=== PATIENT | male | born 1950 | race Caucasian/White ===

== ENCOUNTER 2022-07-06 13:47 | Day surgery (SDC) | payer OTHER ==
[~2022-07-06] VITALS: Ht 180.3 cm; Wt 97.5 kg
--- NOTE | 2022-07-06 14:34 | NUR ---
07/06/22 1434 Kath RodINE AT 1420 PLEDGET AT 1421; SECOND PLEDGET PLACED D/T FIRST ONE COMING OUT AT 1429
== END 2022-07-06 15:33 | disposition home or self-care (01) ==
LOC: ORSCSDS 13:47
PROVIDERS: Ophthalmology
PROC: 08DK3ZZ Extraction of Left Lens, Percutaneous Approach (ICD-10-PCS; principal; 2022-07-06 15:00)
DX: E11.36 Type 2 diabetes mellitus with diabetic cataract (principal); H25.12 Age-related nuclear cataract, left eye; I12.9 Hypertensive chronic kidney disease with stage 1 through stage 4 chronic kidney disease, or unspecified chronic kidney disease; E11.22 Type 2 diabetes mellitus with diabetic chronic kidney disease; N18.9 Chronic kidney disease, unspecified; K21.9 Gastro-esophageal reflux disease without esophagitis; F43.10 Post-traumatic stress disorder, unspecified; F32.A Depression, unspecified; F41.9 Anxiety disorder, unspecified; M54.12 Radiculopathy, cervical region; Z79.4 Long term (current) use of insulin; Z79.899 Other long term (current) drug therapy
CPT/HCPCS: 82947; J2001; J2250; J3010; J3301; J7040; V2632

== ENCOUNTER 2022-08-31 13:19 | Day surgery (SDC) | payer OTHER ==
[~2022-08-31] VITALS: Ht 180.3 cm; Wt 98.8 kg
--- NOTE | 2022-08-31 14:34 | NUR ---
08/31/22 1434 Dawit Pavon CALL LIGHT WITHIN REACH. TETRACAINE IN AT 1425 TO RIGHT EYE AND PLEDGETT INTO R EYE AT 1426.
--- NOTE | 2022-08-31 16:05 | NUR ---
08/31/22 1605 Tadeo Coronel IV [id number]. SITE [facility].
== END 2022-08-31 16:00 | disposition home or self-care (01) ==
LOC: ORSCSDS 13:19
PROVIDERS: Ophthalmology
PROC: 08DJ3ZZ Extraction of Right Lens, Percutaneous Approach (ICD-10-PCS; principal; 2022-08-31 15:00)
DX: H25.11 Age-related nuclear cataract, right eye (principal); H52.201 Unspecified astigmatism, right eye; Z96.1 Presence of intraocular lens; E11.9 Type 2 diabetes mellitus without complications; F32.A Depression, unspecified; F41.9 Anxiety disorder, unspecified; I10 Essential (primary) hypertension; Z79.899 Other long term (current) drug therapy
CPT/HCPCS: 82947; J2250; J3010; J3301; J7040; V2632

== ENCOUNTER 2023-10-19 12:46 | Inpatient (IN) | payer OTHER ==
[~2023-10-19] VITALS: Ht 180.3 cm; Wt 89.6 kg
[2023-10-19] MEDS ORDERED: NS 1,000 ML IV SCH ×2 (17:35→19:35)
[2023-10-19] MEDS ORDERED: MetroNIDAZOLE 500MG/NS 100 ml 100 ML IV ONE (17:40)
[2023-10-19] MEDS ORDERED: Ciprofloxacin 500 MG Tab PO ONE (17:40)
[2023-10-19 18:29] LABS: BASOPHILS ABSOLUTE AUTO 0.01 K/mm3 (0.00-0.23); BASOPHILS PERCENT AUTO 0 % (0-2); EOSINOPHILS ABSOLUTE AUTO 0.08 K/mm3 (0.00-0.68); EOSINOPHILS PERCENT AUTO 1 % (0-6); Hematocrit 38.3 % (37.0-53.0); Hemoglobin 13.3 g/dL (13.5-17.5); IMMATURE GRAN ABSOLUTE AUTO 0.04 K/mm3 (0.00-0.10); IMMATURE GRAN PERCENT AUTO 1 % (0-1); LYMPHOCYTES ABSOLUTE AUTO 0.74 K/mm3 (0.84-5.20); LYMPHOCYTES PERCENT AUTO 9 % (21-46); MONOCYTES ABSOLUTE AUTO 0.43 K/mm3 (0.16-1.47); MONOCYTES PERCENT AUTO 5 % (4-13); Mean Corpuscular HGB 32.6 pg (26.0-34.0); Mean Corpuscular HGB Conc 34.7 g/dL (31.5-36.5); Mean Corpuscular Volume 94 fL (80-100); Mean Platelet Volume 9.8 fL (9.1-12.4); NEUTROPHILS ABSOLUTE AUTO 7.08 K/mm3 (1.96-9.15); NEUTROPHILS PERCENT AUTO 85 % (41-73); Platelet Count 142 K/mm3 (150-400); RDW Coefficient Variation 12.1 % (11.7-14.2); RDW Standard Deviation 42.5 fL (35.1-46.3); Red Blood Cell Count 4.08 M/mm3 (4.30-5.90); White Blood Cell Count 8.38 K/mm3 (4.00-11.30)
[2023-10-19 18:43] LABS: Albumin, Blood 3.2 g/dL (3.4-5.0); Albumin/Globulin Ratio 0.8 (0.8-1.8); Bilirubin, Total 4.8 mg/dL (0.1-1.0); Bun/Creatinine Ratio 20.7 (12.0-20.0); Creatinine, Blood 0.82 mg/dL (0.60-1.20); Globulin, Blood 4.1 g/dL (2.2-4.0); Potassium, Blood 3.5 mmol/L (3.5-5.5); Total Protein, Blood 7.3 g/dL (6.4-8.2)
[2023-10-19] MEDS ORDERED: FentaNYL Citrate 50 MCG/ML 2 ML Injection IV PRN (19:35)
[2023-10-19] MEDS ORDERED: Ondansetron HCl 2 MG / ML 2ML Vial IV PRN (19:35)
[2023-10-19] MEDS ORDERED: Insulin Glargine-Yfgn 100 Unit/mL 3 ML SYR SC SCH (21:00)
[2023-10-19 21:34] VITALS: BP 121/61
[2023-10-19] MEDS ORDERED: Aspir 8181 MG PO (22:01)
[2023-10-19] MEDS ORDERED: Hair, Skin & N1 EACH PO (22:02)
[2023-10-19] MEDS ORDERED: OMEP20ER PO (22:02)
[2023-10-19] MEDS ORDERED: UBID10 PO (22:02)
[2023-10-19] MEDS ORDERED: HUMULIN R100 UNIT/1 SC (22:04)
[2023-10-19] MEDS ORDERED: INSULANI SC (22:08)
[2023-10-20] VITALS (12 sets, daily range): BP systolic 100–163; BP diastolic 44–82
[2023-10-20 05:11] LABS: Hematocrit 38.1 % (37.0-53.0); Hemoglobin 13.1 g/dL (13.5-17.5); Mean Corpuscular HGB 32.6 pg (26.0-34.0); Mean Corpuscular HGB Conc 34.4 g/dL (31.5-36.5); Mean Corpuscular Volume 95 fL (80-100); Mean Platelet Volume 9.9 fL (9.1-12.4); Platelet Count 127 K/mm3 (150-400); RDW Coefficient Variation 12.1 % (11.7-14.2); RDW Standard Deviation 42.2 fL (35.1-46.3); Red Blood Cell Count 4.02 M/mm3 (4.30-5.90); White Blood Cell Count 7.83 K/mm3 (4.00-11.30)
--- NOTE | 2023-10-20 05:21 | NUR ---
NOC SHIFT SUMMARY RECEIVED REPORT FROM ER NURSE NE. PT ARRIVES TO MEDICAL FLOOR AT 2134, RM 340, ON A STRETCHER, WITH NO SIGNS OF DISTRESS, IVF RUNNING. PT ORIENTED TO ROOM AND PLAN OF CARE. HE HAS NOT EXPERIENCED ANY ABDOMINAL PAIN, N/V, OR ANY COMPLAINTS OF DISCOMFORT. HAS BEEN NPO SINCE MIDNIGHT. CALLED SURGERY ANSWERING SERVICE OVERNIGHT AND THEY REPORT THAT A SURGEON WILL CONSULT TODAY. CALL LIGHT WITHIN REACH.
[2023-10-20 05:28] LABS: International Normalized Ratio 1.12; Prothrombin Time Results 11.9 Sec (9.7-11.5)
[2023-10-20 05:37] LABS: Magnesium, Blood 2.1 mg/dL (1.6-2.4)
[2023-10-20 05:49] LABS: Albumin/Globulin Ratio 0.8 (0.8-1.8); Bilirubin, Total 2.7 mg/dL (0.1-1.0); Bun/Creatinine Ratio 20.6 (12.0-20.0); Calcium, Blood 8.4 mg/dL (8.5-10.1); Creatinine, Blood 0.73 mg/dL (0.60-1.20); Globulin, Blood 3.7 g/dL (2.2-4.0); Potassium, Blood 3.7 mmol/L (3.5-5.5); Total Protein, Blood 6.7 g/dL (6.4-8.2)
[2023-10-20] MEDS ORDERED: Bupivacaine 0.5% HCl 5 MG/ML 30MLVIAL ONE (11:10)
[2023-10-20] MEDS ORDERED: FentaNYL Citrate 50 MCG/ML 2 ML Injection ONE (11:17)
[2023-10-20] MEDS ORDERED: propofoL 20 ML IV ONE (11:17)
[2023-10-20] MEDS ORDERED: Rocuronium Bromide 10 MG/ML 5ML Injection IV ONE ×2 (11:18→12:34)
[2023-10-20] MEDS ORDERED: Dexamethasone Sod Phos 10 MG/ML 1ML VIAL ONE (11:18)
[2023-10-20] MEDS ORDERED: Sugammadex Sodium 200 MG/2ML SDV (100 MG/ML) ONE (11:18)
[2023-10-20] MEDS ORDERED: Ondansetron HCl 2 MG / ML 2ML Vial ONE (11:18)
[2023-10-20] MEDS ORDERED: Lidocaine HCl 2% 20 ML MDV ONE (11:19)
[2023-10-20] MEDS ORDERED: Lactated Ringer's 1,000 ML IV SCH (11:20)
[2023-10-20] MEDS ORDERED: MetroNIDAZOLE 500MG/NS 100 ml 100 ML IV SCH (11:20)
[2023-10-20] MEDS ORDERED: LevoFLOXacin 750 MG/D5W 150ML 150 ML IV SCH (11:25)
--- NOTE | 2023-10-20 11:43 | NUR ---
PT INTO SDS VIA BENJAMIN. Pre-Op teaching done. Pt verbalizes understanding. History, Chart, Medications and Allergies reviewed before start of procedure.Patient confirms NPO status and agrees with scheduled surgery.
--- NOTE | 2023-10-20 11:49 | NUR ---
report received verified, pt laying quietly in bed vss awaiting sx possibly today been npo since midnight. 1115 pt taken down to OR for procedure.
[2023-10-20] MEDS ORDERED: ePHEDrine Sulfate 50 MG/ML 1ML Injection ONE (12:33)
[2023-10-20] MEDS ORDERED: HYDROcodone 5-APAP 325 TAB PO PRN (14:05)
[2023-10-20] MEDS ORDERED: HYDROmorphone HCl/Pf 1MG SYR ONE (14:30)
--- NOTE | 2023-10-20 15:50 | NUR ---
1500 PT RETURNED FROM PROCEDURE A/O SLEEPY, VSS STATES HES DOING WELL BUT DOES HAVE SOME PAIN . 1600 PT DANA PO AND WAS MEDICATED FOR PAIN .
[2023-10-20] MEDS ORDERED: FISH OIL 1,0001 EA10 PO (16:26)
[2023-10-20] MEDS ORDERED: PANT20 PO (16:26)
[2023-10-20] MEDS ORDERED: Insulin Human Lispro 100 Units/ML 3ML Syringe SC SCH ×2 (21:00)
[2023-10-21 03:47] VITALS: BP 134/63
[2023-10-21 05:58] LABS: Hematocrit 38.3 % (37.0-53.0); Hemoglobin 13.1 g/dL (13.5-17.5); Mean Corpuscular HGB 32.6 pg (26.0-34.0); Mean Corpuscular HGB Conc 34.2 g/dL (31.5-36.5); Mean Corpuscular Volume 95 fL (80-100); Mean Platelet Volume 10.1 fL (9.1-12.4); Platelet Count 145 K/mm3 (150-400); RDW Standard Deviation 42.4 fL (35.1-46.3); Red Blood Cell Count 4.02 M/mm3 (4.30-5.90); White Blood Cell Count 11.56 K/mm3 (4.00-11.30)
[2023-10-21 06:18] LABS: Albumin, Blood 2.9 g/dL (3.4-5.0); Albumin/Globulin Ratio 0.7 (0.8-1.8); Bilirubin, Total 1.5 mg/dL (0.1-1.0); Bun/Creatinine Ratio 19.4 (12.0-20.0); Calcium, Blood 8.5 mg/dL (8.5-10.1); Creatinine, Blood 0.62 mg/dL (0.60-1.20); Potassium, Blood 4.3 mmol/L (3.5-5.5); Total Protein, Blood 6.9 g/dL (6.4-8.2)
[2023-10-21 06:21] LABS: Bun/Creatinine Ratio 20.3 (12.0-20.0); Calcium, Blood 8.5 mg/dL (8.5-10.1); Creatinine, Blood 0.59 mg/dL (0.60-1.20); Potassium, Blood 4.3 mmol/L (3.5-5.5)
--- NOTE | 2023-10-21 06:46 | NUR ---
Patient alert and oriented x4, VSS, tolerating room air appropriately. PIV replaced to left AC, IV rocephin tolerated well. PRN pain medication given x1, see eMAR, tolerated well. Joiner catheter intact, draining appropriately, output appears yellow/asia, cloudy, malodorous. 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 Patient voicing eagerness for discharge soon.
--- NOTE | 2023-10-21 07:16 | NUR ---
Patient alert and
--- NOTE | 2023-10-21 07:16 | NUR ---
Patient alert and oriented x4, VSS, resting comfortably in bed despite abdominal pain after surgery yesterday. x4 lap sites C/D/I. PRN pain medication given x3, see eMAR. NS @ 150 mL/hr infusing to left AC, tolerating well. Patient voiding in urinal. PO intake limited to water overnight per patient request.
[2023-10-21 08:00] VITALS: BP 137/64
[2023-10-21] MEDS ORDERED: Norco 5-325 Ta1 EACH PO (11:38)
--- NOTE | 2023-10-21 11:51 | NUR ---
DISCHARGE NOTE: DISCUSSED DISCHARGE WITH PATIENT; NO QUESTIONS OR CONCERNS. IV REMOVED, PATIENT GOT DRESSED, AND BELONGINGS COLLECTED. DAUGHTER HER TO TAKE PATIENT HOME. PATIENT WHEELED DOWN VIA WHEELCHAIR BY STAFF AND DAUGHTER. NO SIGNS OR SYMPTOMS OF DISTRESS DURING DISCHARGE.
== END 2023-10-21 11:48 | disposition home or self-care (01) | DRG 419 ==
LOC: ER 12:46 → MEDS 18:59 → ENPENDDIS 10-21 10:57 → MEDS 10-21 11:48
PROVIDERS: Emergency Medicine; Family Medicine Adult Medicine; Nurse Practitioner Acute Care; Surgery; ADMIT Internal Medicine
PROC: 0FT44ZZ Resection of Gallbladder, Percutaneous Endoscopic Approach (ICD-10-PCS; principal; 2023-10-20 11:00)
DX: K85.10 Biliary acute pancreatitis without necrosis or infection (principal); E11.9 Type 2 diabetes mellitus without complications; Z79.4 Long term (current) use of insulin; Z79.899 Other long term (current) drug therapy; Z90.49 Acquired absence of other specified parts of digestive tract; Z88.0 Allergy status to penicillin; Z98.890 Other specified postprocedural states; G47.33 Obstructive sleep apnea (adult) (pediatric)
CPT/HCPCS: 36415; 74181; 74300; 80048; 80053; 82947; 83690; 83735; 85025; 85027; 85610; 93005; 93010; 94762; 96365; 99285-25; A9270; C1894; J1100; J1170; J1815; J1956; J2405; J2704; J3010; J7030; J7120